=== PATIENT | female | born 2005 | race Asian ===

== ENCOUNTER 2023-12-27 16:55 | Observation (INO) ==
[2023-12-27] MEDS: ONDANSETRON INJ 2 MG/ML 2 ML VIAL IV STA (17:29)
[2023-12-27] MEDS: SODIUM CHLORIDE 0.9% 500 ML IV STA (17:30)
[2023-12-27 17:48] LABS: Basophils # (auto) 0.03 K/uL (0.00-0.20); Basophils % (auto) 0.5 %; Eosinophils # (auto) 0.01 K/uL (0.00-0.50); Eosinophils % (auto) 0.2 %; Hematocrit (blood only) 39.7 % (37.0-47.0); Hemoglobin 13.7 g/dl (12.0-16.0); Immature Granulocytes # (auto) 0.01 K/uL (0.01-0.20); Immature Granulocytes % (auto) 0.2 %; Lymphocytes # (auto) 1.58 K/uL (1.20-3.40); Lymphocytes % (auto) 23.9 %; Mean Corpuscular Hemoglobin 29.7 pg (25.0-34.0); Mean Corpuscular Hgb Conc 34.5 g/dL (32.0-36.0); Mean Corpuscular Volume 86.1 fL (80.0-100.0); Mean Platelet Volume 9.8 fL (9.4-12.4); Monocytes % (auto) 4.5 %; Neutrophils # (auto) 4.68 K/uL (1.40-6.50); Neutrophils % (auto) 70.7 %; Platelet Count 459 K/uL (130-400); RDW Coefficient of Variation 12.1 % (11.5-14.5); RDW Standard Deviation 38.1 fL (36.4-46.3); Red Blood Count 4.61 M/uL (4.20-5.40); White Blood Count 6.61 K/ul (4.8-10.8)
[2023-12-27 18:07] LABS: Pregnancy Test, Serum Negative (Negative)
[2023-12-27 18:09] LABS: Anion Gap 10 (3-11); BUN Creatinine Ratio 10.5 (10-20); Blood Urea Nitrogen 6 mg/dl (6-23); Calcium 10.3 mg/dl (8.6-10.3); Carbon Dioxide 26 mmol/L (21-32); Chloride 104 mmol/L (98-107); Creatinine Clr Calc Pharmacy 145.9 ml/min; Est GFR (African American) > 150.0 ml/min; Est GFR (Non-African American) 133.5 ml/min; Glucose 102 mg/dl (70-99(Fasting)); Potassium 3.6 mmol/L (3.5-5.1); Sodium 140 mmol/L (136-145)
[2023-12-27] MEDS: OPTIRAY 320 100ml IV ONE (18:22)
[2023-12-27 18:41] LABS: Alanine Aminotransferase 1021 U/L (7-52); Albumin Globulin Ratio 1.3 (0.9-2); Albumin Level 4.9 gm/dl (3.4-5.0); Alkaline Phosphatase 167 U/L (34-104); Aspartate Aminotransferase 626 U/L (13-39); Bilirubin,Total 2.1 mg/dl (0.2-1.0); Globulin 3.8 gm/dl (2.5-4.0); Lipase 26 U/L (11-82); Total Protein 8.7 gm/dl (6.0-8.3)
--- NOTE | 2023-12-27 18:49 | CT Scan Report ---
CT abd pelvis IV con only CLINICAL HISTORY: RLQ pain TECHNIQUE: Helical axial images of the abdomen and pelvis were obtained and displayed. Automated dose lowering techniques and/or adjustment according to patient size were utilized for this exam. This e xam was performed with intravenous contrast. CT DOSE: 893.08 mGy.cm COMPARISON: None available at the time of this dictation. FINDINGS: Lower chest: No acute abnormality. Liver: Unremarkable. No focal lesions are seen. Gallbladder and biliary tree: No calcified gallstones. Normal caliber wall. Prominence of the intrahe patic biliary ducts is noted. Pancreas: Unremarkable, no focal lesions. Spleen: Splenule is incidentally noted. Adrenals: Unremarkable. Kidneys and ureters: Unremarkable. Bladder: Limited evaluation due to underdistention. Reproductive organs: Unremarkable. The ovaries are seen bilaterally. Bowel: The appendix is normal. Lymph nodes Retroperitoneal: Unremarkable. Pelvic: Unremarkable. Mesenteric: Unremarkable. Peritoneum: Normal. Vessels: Unremarkable. Abdominal wall: Unremarkable. Bones: Unremarkable. IMPRESSION: 1. No acute abnormalities to explain right lower quadrant pain. In particular, no evidence of append icitis. Pelvic ultrasound can be performed if there is concern for ovarian torsion. 2. Prominence of the intrahepatic bile ducts may be physiologic. ACT 112: Negative or not required by law. Electronically signed by: Andry Borrego M.D. 12/27/2023 6:47 PM
[2023-12-27 19:23] LABS: Appearance Urine Cloudy (Clear); Bacteria Urine Automated Negative (Negative); Blood Urine Negative (Negative); Color Urine Dark Yellow; Epithelial Cell Urine Auto >30 /lpf (0-5); Glucose Urine UA Negative (Negative); Ketones Urine 2+ (Negative); Leukocyte Esterase Urine Trace (Negative); Nitrite Urine Negative (Negative); Specific Gravity Urine > 1.045 (1.000-1.030); Urobilinogen Urine Negative (Negative); WBC Urine Automated >30 /hpf (0-5)
[2023-12-27 19:25] LABS: Bilirubin Urine 1+ (Negative); Protein Urine 1+ (Negative)
[2023-12-27 19:51] LABS: RBC Urine Automated 0-4 /hpf (0-4)
[2023-12-27] MEDS: SODIUM CHLORIDE 0.9% 1,000 ML IV SCH (20:04)
--- NOTE | 2023-12-27 20:38 | Ultrasound Report ---
Exam(s): US GALLBLADDER EXAM: US Abdomen Limited, Gallbladder CLINICAL HISTORY: Reason for exam: ruq pain. TECHNIQUE: Real-time ultrasound of the right upper quadrant with image documentation. COMPARISON: Ultrasound from December 27, 2023 FINDINGS: Liver: The liver measures 15.3 cm with normal echotexture. Gallbladder: There are multiple shadowing stones within a distended but nondilated gallbladder. The gallbladder wall is slightly thickened measuring 4 mm. No pericholecystic fluid is seen. Sonographic Major sign is negative. Common bile duct: The common bile duct is upper normal for age measuring 7.3 mm. No choledocholithiasis is seen. No dilation. Pancreas: The visualized portion of the pancreas is normal. Right kidney: The right kidney measures 10.7 cm. Inferior vena cava: The IVC is unremarkable. IMPRESSION: 1. There are multiple shadowing stones within a distended but nondilated gallbladder. The gallbladder wall is slightly thickened measuring 4 mm. No pericholecystic fluid is seen. Sonographic Major sign is negative. 2. The common bile duct is upper normal for age measuring 7.3 mm. No choledocholithiasis is seen. Electronically signed by: Han Dougherty MD 12/27/23 20:37 PM
--- NOTE | 2023-12-27 21:53 | Ultrasound Report ---
Exam(s): US PELVIS EXAM: US Pelvis Transabdominal, Complete CLINICAL HISTORY: Reason for exam: rlq pain ro ovarian torsion. TECHNIQUE: Real-time complete transabdominal pelvic ultrasound with image documentation. COMPARISON: Abdominal ultrasound from December 27, 2023 FINDINGS: Uterus/cervix: The uterus measures 5 x 2.3 x 3.1 cm and is anteverted. The myometrium is unremarkable. The endometrial stripe measures not visible. Right ovary: The right ovary measures 1.8 x 2 x 1.5 cm with normal Doppler blood flow. Left ovary: The left ovary is obscured. Free fluid: No free fluid is seen in the pelvis. Bladder: Unremarkable as visualized. Wall is normal thickness for degree of distention. IMPRESSION: Unremarkable appearance of the uterus and right ovary per the left ovary is obscured. No free fluid is seen. Electronically signed by: Han Dougherty MD 12/27/23 21:52 PM
--- NOTE | 2023-12-27 22:02 | Emergency Department Note ---
History of Present Illness General Chief Complaint: Abdominal Pain Stated Complaint: RT LOW ABD PAIN, THINKS HAS APPENDESITIS Time Seen by Provider: 12/27/23 19:02 History of Present Illness Provider Complaint: abdominal pain Onset (ago): 2 day(s) Pain Consistency: intermittent Location: RUQ Radiation: RLQ Severity: moderate Maximum Pain Intensity: 7 Current Pain Intensity: 7 Quality: + stabbing and + sharp Relieved By: + nothing Exacerbated By: + nothing Context: + possible food poisoning (Symptoms occurred after eating ice cream rice and beans); no foreign travel, no sick contacts, no recent antibiotic use, no recent surgery/procedure, no recent injury or no history of similar episodes Associated Symptoms: + nausea and + vomiting; no diarrhea, no fever, no chills, no constipation, no dysuria, no hematemesis, no hematochezia, no melena, no hematuria, no syncope, no headache, no back pain, no chest pain and no breathing difficulty Related Data Last Menstrual Period: 11/30/23 Patient Confirmed : No Home Medications Medication Instructions Recorded Confirmed Type multivitamin 1 tab PO DAILY 12/27/23 12/27/23 History Allergies Allergy/AdvReac Type Severity Reaction Status Date / Time Sulfa (Sulfonamide Allergy Intermediate Hives Verified 12/27/23 21:07 Antibiotics) Past Med/Surg History Medical History No pertinent past medical history No pertinent family history Surgical History No pertinent past surgical history Social History Smoking Status: Never smoker Preferred Language: Nigerian Feels Safe at Home: Yes Physical Exam 2 Vital Signs: Vital Signs - 24 hr 12/27/23 17:13 12/27/23 19:01 12/27/23 20:00 Temperature 36.8 C Temperature Source Oral Pulse Rate 93 H Pulse Rate [Finger ] 93 H 63 Pulse Rhythm Regular Pulse Strength Normal Respiratory Rate 20 18 20 Respiratory Effort / Characteristics Non-Labored Sponta neous Non-Labored Sponta neous Non-Labored Respiratory Depth Normal Normal Normal Respiratory Patter n Regular Regular Blood Pressure 131/91 Blood Pressure [Ri ght Arm] 139/92 115/71 Blood Pressure Mita n 104 Blood Pressure Mita n [Right Arm] 107 85 Blood Pressure Pos ition Sitting Pulse Oximetry 98 98 98 Oxygen Delivery Me thod Room Air Room Air Room Air Sepsis Recent Feve r Within 48 Hours No Sepsis New/Unexpla ined Change in Men darvin Status No Sepsis Action Take n by Nursing No Action Required 12/27/23 21:52 12/27/23 22:51 12/27/23 23:00 Temperature Temperature Source Pulse Rate 89 69 Pulse Rate [Finger ] 76 Pulse Rhythm Pulse Strength Respiratory Rate 16 17 Respiratory Effort / Characteristics Non-Labored Respiratory Depth Normal Respiratory Patter n Regular Blood Pressure 129/82 Blood Pressure [Ri ght Arm] 119/78 Blood Pressure Mita n 97 Blood Pressure Mita n [Right Arm] 91 Blood Pressure Pos ition Pulse Oximetry 98 100 Oxygen Delivery Me thod Room Air Room Air Sepsis Recent Feve r Within 48 Hours Sepsis New/Unexpla ined Change in Men darvin Status Sepsis Action Take n by Nursing Physical Exam: Physical Exam GENERAL: Hirsute appearing. HENT: Exam performed. -Head: Normocephalic and atraumatic. -Right Ear: External ear normal. No mastoid erythema -Left Ear: External ear normal. No mastoid erythema -Mouth/Throat: The oropharynx is clear and moist. No trismus in the jaw. No dental abscesses or uvula swelling. No oropharyngeal exudate or tonsillar abscesses. EYES: Conjunctivae and EOM are normal.Right eye exhibits no discharge. Left eye exhibits no discharge. No scleral icterus. NECK: Normal range of motion. Neck supple. No JVD present. No tracheal deviation and normal range of motion present. CV: Normal rate, regular rhythm, normal heart sounds and intact distal pulses. There is no peripheral edema. Palpable radial pulses bue. PULM/CHEST: Effort normal and breath sounds normal. No respiratory distress. No stridor. She has no wheezes. She has no rales. -Chest Wall: She exhibits no tenderness. ABD: The abdomen is soft. Bowel sounds are normal. She has no distension. No mass is present. There is tenderness to palpation of the right upper quadrant and right lower quadrant. There is no rebound, no guarding, no Major's sign and Rovsig negative MUSC/SKEL: Normal range of motion. There is no peripheral edema, tenderness or deformity. NEURO: Motor and sensation grossly intact. SKIN: Skin is warm and dry. She is not diaphoretic. PSYCH: She has a normal mood and affect. Behavior is normal. Judgment and thought content normal. Course Course 1901: The patient was evaluated in room A11A. A complete history and physical exam was performed Cardiac monitoring: An order was placed for continuous cardiac monitoring. The monitor shows a rate of 70 with sinus rhythm interpreted by tx 2101: Vital signs stable. Labs show white blood cell count of 6.61. Platelet count 459. Total bilirubin 2.1 AST 626 ALT [address] of the abdomen pelvis is negative for appendicitis. Ultrasound of the right upper quadrant showed multiple shadowing stones with distended but nondilated gallbladder. There is slight wall thickness of 4 mm but no pericholecystic fluid and no sonographic Major sign. The common bile duct is at the upper end of normal at 7.3 mm but there is no choledocholithiasis seen. Discussed these findings with on-call GI Dr. Valentin. He states that the patient does not need to be transferred at this time and the patient can stay here and get an MRCP in the morning and he can evaluate the patient and see if she needs a HIDA scan. 2211: Vital signs stable. Pelvis ultrasound is negative for ovarian torsion or ovarian cyst on the right. Left ovary is obscured. Discussed case with Dr. Dougherty who will evaluate the patient for admission. Administered Medications Discontinued Medications Sodium Chloride (Nss) 500 mls @ 999 mls/hr IV .Q31M STA Stop: 12/27/23 17:48 Last Infusion: 12/27/23 19:00 Dose: Infused Documented By: Admin: 12/27/23 17:30 Dose: 999 mls/hr Documented By: HERBER Sodium Chloride (Nss) 1,000 mls @ 999 mls/hr IV .Q1H1M BERNABE Stop: 12/27/23 22:00 Last Admin: 12/27/23 20:05 Dose: 999 mls/hr Documented By: Infusion: 12/27/23 20:05 Dose: Infused Documented By: Admin: 12/27/23 20:04 Dose: 999 mls/hr Documented By: PEDRO Ioversol (Optiray 320 100ml) 90 ml IV ONCE ONE Stop: 12/27/23 18:23 Last Admin: 12/27/23 18:22 Dose: 90 ml Documented By: VIR[place]IA Ketorolac Tromethamine (Ketorolac Tromethamine 15 Mg/Ml Vial) 15 mg IV NOW STA Stop: 12/27/23 22:11 Last Admin: 12/27/23 22:42 Dose: 15 mg Documented By: PEDRO Ondansetron HCl (Ondansetron Inj 2 Mg/Ml 2 Ml Vial) 4 mg IV NOW STA Stop: 12/27/23 17:19 Last Admin: 12/27/23 17:29 Dose: 4 mg Documented By: HS Medical Decision Making Laboratory Data Attestation: I reviewed the patient's lab results. 12/27/23 17:32 12/27/23 17:32 Lab Results 12/27/23 12/27/23 Range/Units 17:32 19:00 WBC 6.61 (4.8-10.8) K/ul RBC 4.61 (4.20-5.40) M/uL Hgb 13.7 (12.0-16.0) g/dl Hct 39.7 (37.0-47.0) % MCV 86.1 (80.0-100.0) fL MCH 29.7 (25.0-34.0) pg MCHC 34.5 (32.0-36.0) g/dL RDW Std Deviation 38.1 (36.4-46.3) fL RDW Coeff of Lori 12.1 (11.5-14.5) % Plt Count 459 H (130-400) K/uL MPV 9.8 (9.4-12.4) fL Immature Gran % (Auto) 0.2 % Neut % (Auto) 70.7 % Lymph % (Auto) 23.9 % [place] % (Auto) 4.5 % Eos % (Auto) 0.2 % Baso % (Auto) 0.5 % Neut # (Auto) 4.68 (1.40-6.50) K/uL Lymph # (Auto) 1.58 (1.20-3.40) K/uL [place] # (Auto) 0.30 (0.11-0.59) K/uL Eos # (Auto) 0.01 (0.00-0.50) K/uL Baso # (Auto) 0.03 (0.00-0.20) K/uL Immature Gran # (Auto) 0.01 (0.01-0.20) K/uL Sodium 140 (136-145) mmol/L Potassium 3.6 (3.5-5.1) mmol/L Chloride 104 (98-107) mmol/L Carbon Dioxide 26 (21-32) mmol/L Anion Gap 10 (3-11) BUN 6 (6-23) mg/dl Creatinine 0.57 L (0.6-1.2) mg/dl Est Cr Clr Drug Dosing 145.9 ml/min Est GFR ( Amer) > 150.0 ml/min Est GFR (Non-Af Amer) 133.5 ml/min BUN/Creatinine Ratio 10.5 (10-20) Glucose 102 H (70-99(Fasting)) mg/dl Calcium 10.3 (8.6-10.3) mg/dl Total Bilirubin 2.1 H (0.2-1.0) mg/dl AST 626 H (13-39) U/L ALT 1021 H (7-52) U/L Alkaline Phosphatase 167 H (34-104) U/L Total Protein 8.7 H (6.0-8.3) gm/dl Albumin 4.9 (3.4-5.0) gm/dl Globulin 3.8 (2.5-4.0) gm/dl Albumin/Globulin Ratio 1.3 (0.9-2) Lipase 26 (11-82) U/L HCG, Qual Negative (Negative) Urine Color Dark Yellow Urine Appearance Cloudy A (Clear) Urine pH 8.0 H (4.5-7.5) Ur Specific Tamms > 1.045 H (1.000-1.030) Urine Protein 1+ H (Negative) Urine Glucose (UA) Negative (Negative) Urine Ketones 2+ H (Negative) Urine Blood Negative (Negative) Urine Nitrite Negative (Negative) Urine Bilirubin 1+ H (Negative) Urine Urobilinogen Negative (Negative) Ur Leukocyte Esterase Trace H (Negative) Urine WBC (Auto) >30 H (0-5) /hpf Urine RBC (Auto) 0-4 (0-4) /hpf U Hyaline Cast (Auto) 1-5 (0-5) /lpf U Epithel Cells (Auto) >30 H (0-5) /lpf Urine Bacteria (Auto) Negative (Negative) Urine Yeast Not Reportable Imaging Data Radiologist's Impression: Abdomen/Pelvis CT 12/27/23 17:20 CT abd pelvis IV con only CLINICAL HISTORY: RLQ pain TECHNIQUE: Helical axial images of the abdomen and pelvis were obtained and displayed. Automated dose lowering techniques and/or adjustment according to patient size were utilized for this exam. This exam was performed with intravenous contrast. CT DOSE: 893.08 mGy.cm COMPARISON: None available at the time of this dictation. FINDINGS: Lower chest: No acute abnormality. Liver: Unremarkable. No focal lesions are seen. Gallbladder and biliary tree: No calcified gallstones. Normal caliber wall. Prominence of the intrahepatic biliary ducts is noted. Pancreas: Unremarkable, no focal lesions. Spleen: Splenule is incidentally noted. Adrenals: Unremarkable. Kidneys and ureters: Unremarkable. Bladder: Limited evaluation due to underdistention. Reproductive organs: Unremarkable. The ovaries are seen bilaterally. Bowel: The appendix is normal. Lymph nodes Retroperitoneal: Unremarkable. Pelvic: Unremarkable. Mesenteric: Unremarkable. Peritoneum: Normal. Vessels: Unremarkable. Abdominal wall: Unremarkable. Bones: Unremarkable. IMPRESSION: 1. No acute abnormalities to explain right lower quadrant pain. In particular, no evidence of appendicitis. Pelvic ultrasound can be performed if there is concern for ovarian torsion. 2. Prominence of the intrahepatic bile ducts may be physiologic. ACT 112: Negative or not required by law. Electronically signed by: Andry Borrego M.D. 12/27/2023 6:47 PM Gallbladder Ultrasound 12/27/23 19:22 Exam(s): US GALLBLADDER EXAM: US Abdomen Limited, Gallbladder CLINICAL HISTORY: Reason for exam: ruq pain. TECHNIQUE: Real-time ultrasound of the right upper quadrant with image documentation. COMPARISON: Ultrasound from December 27, 2023 FINDINGS: Liver: The liver measures 15.3 cm with normal echotexture. Gallbladder: There are multiple shadowing stones within a distended but nondilated gallbladder. The gallbladder wall is slightly thickened measuring 4 mm. No pericholecystic fluid is seen. Sonographic Major sign is negative. Common bile duct: The common bile duct is upper normal for age measuring 7.3 mm. No choledocholithiasis is seen. No dilation. Pancreas: The visualized portion of the pancreas is normal. Right kidney: The right kidney measures 10.7 cm. Inferior vena cava: The IVC is unremarkable. IMPRESSION: 1. There are multiple shadowing stones within a distended but nondilated gallbladder. The gallbladder wall is slightly thickened measuring 4 mm. No pericholecystic fluid is seen. Sonographic Major sign is negative. 2. The common bile duct is upper normal for age measuring 7.3 mm. No choledocholithiasis is seen. Electronically signed by: Han Dougherty MD 12/27/23 20:37 PM Pelvis Ultrasound 12/27/23 19:22 Exam(s): US PELVIS EXAM: US Pelvis Transabdominal, Complete CLINICAL HISTORY: Reason for exam: rlq pain ro ovarian torsion. TECHNIQUE: Real-time complete transabdominal pelvic ultrasound with image documentation. COMPARISON: Abdominal ultrasound from December 27, 2023 FINDINGS: Uterus/cervix: The uterus measures 5 x 2.3 x 3.1 cm and is anteverted. The myometrium is unremarkable. The endometrial stripe measures not visible. Right ovary: The right ovary measures 1.8 x 2 x 1.5 cm with normal Doppler blood flow. Left ovary: The left ovary is obscured. Free fluid: No free fluid is seen in the pelvis. Bladder: Unremarkable as visualized. Wall is normal thickness for degree of distention. IMPRESSION: Unremarkable appearance of the uterus and right ovary per the left ovary is obscured. No free fluid is seen. Electronically signed by: Han Dougherty MD 12/27/23 21:52 PM [facility] Narrative 1902: The patient was evaluated in room A11A. A complete history and physical exam was performed Cardiac monitoring: An order was placed for continuous cardiac monitoring. The monitor shows a rate of 70 with sinus rhythm interpreted by tx 2101: Vital signs stable. Labs show white blood cell count of 6.61. Platelet count 459. Total bilirubin 2.1 AST 626 ALT [address] of the abdomen pelvis is negative for appendicitis. Ultrasound of the right upper quadrant showed multiple shadowing stones with distended but nondilated gallbladder. There is slight wall thickness of 4 mm but no pericholecystic fluid and no sonographic Major sign. The common bile duct is at the upper end of normal at 7.3 mm but there is no choledocholithiasis seen. Discussed these findings with on-call GI Dr. Valentin. He states that the patient does not need to be transferred at this time and the patient can stay here and get an MRCP in the morning and he can evaluate the patient and see if she needs a HIDA scan. 2212: Vital signs stable. Pelvis ultrasound is negative for ovarian torsion or ovarian cyst on the right. Left ovary is obscured. Discussed case with Dr. Dougherty who will evaluate the patient for admission. Impression & Plan Abdominal pain, Transaminitis, Gallstone Discharge Plan Visit Data Chief Complaint: Abdominal Pain Stated Complaint: RT LOW ABD PAIN, THINKS HAS APPENDESITIS ED Provider: Payam Dubose Discharge Problem: Abdominal pain, Transaminitis, Gallstone Patient Disposition: Being Evaluated by Hospitalist Forms Stand Alone Forms: [facility] Prescriptions Prescriptions: No Action multivitamin Tablet 1 tab PO DAILY Referrals Referrals: [facility]gregor[facility] [Primary Care Provider] - Discharge Problem: Abdominal pain Qualifiers: Abdominal location: unspecified location Qualified Code(s): R10.9 - Unspecified abdominal pain
[2023-12-27] MEDS: KETOROLAC TROMETHAMINE 15 MG/ML VIAL IV STA (22:42)
--- NOTE | 2023-12-27 23:29 | History & Physical Report ---
Date of Service December 27, 2023 Assessment & Plan (1) Transaminitis: Plan: 18yo female presenting with two days of abdominal pain as well as nausea and vomiting. Laboratory and imaging findings as above - concern for LFT abnormalities in mixed hepatocellular and obstructive patterns. CT imaging with prominence of bile ducts. US with gallstones with CBD at upper limit of normal range. Patient is afebrile, HD stable, non-toxic in appearance and no leukocytosis. Concern would be choledocholithiasis given AP/Tbili elevation as well as CBD at ULN size. Case was discussed with GI quality assurance monitor body and admission to our facility was recommended. 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 Patient developed pain yesterday AM (12/27/23). Pain was in her upper abdomen with radiation into her chest and back. Constant with intermittent worsening as well as some nausea with two episodes of non-bloody/non-bilious vomiting (first at 07:30 then at 18:30). Patient had ongoing pain today as well as nausea and vomiting (10:30 and 11:30 AM). Pain is 7/10 in severity. No associated fever, chills, shortness of breath or diarrhea. She had a normal BM yesterday but none today. No additional complaints. In the ER she is afebrile, HD stable and non-toxic in appearance. Er Course: Zofran 4mg IV NSS x 2.5L Toradol 15mg Allergies Allergy/AdvReac Type Severity Reaction Status Date / Time Sulfa (Sulfonamide Allergy Intermediate Hives Verified 12/27/23 21:07 Antibiotics) Home Medications Medication Instructions Recorded Confirmed Type multivitamin 1 tab PO DAILY 12/27/23 12/27/23 History Past Med/Surg History Medical History (Updated 12/28/23 @ 00:40 by Sara Dougherty DO) No pertinent past medical history Surgical History (Updated 12/28/23 @ 00:40 by Sara Dougherty DO) History of knee surgery Family History (Updated 12/28/23 @ 00:40 by Sara Dougherty DO) Other No significant family history Social History Smoking Status: Never smoker Preferred Language: Burmese Feels Safe at Home: Yes Review of Systems Review of Systems: All systems reviewed & are unremarkable except as noted in HPI & below Physical Exam Physical Exam: General: patient resting comfortably, NAD, non-toxic in appearance, AA&O x 4 Skin: warm, dry, intact, no rashes or lesions, no jaundice HEENT: NC/AT, PERRL, EOMI, anicteric sclera, conjunctiva without injection, external ear normal to inspection and nontender, nares patent, moist mucus membranes, dentition intact, no oropharyngeal lesions, neck supple, trachea midline, no LAD, no thyromegaly, no JVD Heart: +S1/S2, regular, no m/r/g Lungs: equal air entry bilaterally, no rales/rhonchi/wheezes Abd: +BS, soft, ND, tenderness to palpation of upper abdomen without rebound/guarding/peritonitis Ext: warm, 2+ pulses in UE/LE bilaterally, no clubbing/cyanosis or edema Neuro: nonfocal, patient AA&O x 4, speech intact, no facial droop, moving all extremities on command with equal strength 5/5 Results & Data Results & Data Vital Signs (Past 12 Hours) Vital Signs Temp Pulse Pulse Resp BP BP Pulse Ox 12/27/23 23:00 69 17 129/82 100 12/27/23 22:51 89 12/27/23 21:52 76 16 119/78 98 12/27/23 20:00 63 20 115/71 98 12/27/23 19:01 93 H 18 139/92 98 12/27/23 17:13 36.8 C 93 H 20 131/91 98 O2 Del Method 12/27/23 23:00 Room Air 12/27/23 22:51 12/27/23 21:52 Room Air 12/27/23 20:00 Room Air 12/27/23 19:01 Room Air 12/27/23 17:13 Room Air Laboratory Results Laboratory Results WBC 6.61 K/ul (4.8-10.8) 12/27/23 17: RBC 4.61 M/uL (4.20-5.40) 12/27/23 17:32 Hgb 13.7 g/dl (12.0-16.0) 12/27/23 17:32 Hct 39.7 % (37.0-47.0) 12/27/23 17: MCV 86.1 fL (80.0-100.0) 12/27/23 17: MCH 29.7 pg (25.0-34.0) 12/27/23 17: MCHC 34.5 g/dL (32.0-36.0) 12/27/23 17: RDW Std Deviation 38.1 fL (36.4-46.3) 12/27/23 17: RDW Coeff of Lori 12.1 % (11.5-14.5) 12/27/23 17: Plt Count 459 K/uL (130-400) H 12/27/23 17:32 MPV 9.8 fL (9.4-12.4) 12/27/23 17: Immature Gran % (Auto) 0.2 % 12/27/23 17: Neut % (Auto) 70.7 % 12/27/23 17:32 Lymph % (Auto) 23.9 % 12/27/23 17:32 Sac % (Auto) 4.5 % 12/27/23 17:32 Eos % (Auto) 0.2 % 12/27/23 17: Baso % (Auto) 0.5 % 12/27/23 17:32 Neut # (Auto) 4.68 K/uL (1.40-6.50) 12/27/23 17: Lymph # (Auto) 1.58 K/uL (1.20-3.40) 12/27/23 17: Sac # (Auto) 0.30 K/uL (0.11-0.59) 12/27/23 17: Eos # (Auto) 0.01 K/uL (0.00-0.50) 12/27/23 17: Baso # (Auto) 0.03 K/uL (0.00-0.20) 12/27/23 17:32 Immature Gran # (Auto) 0.01 K/uL (0.01-0.20) 12/27/23 17:32 Sodium 140 mmol/L (136-145) 12/27/23 17:32 Potassium 3.6 mmol/L (3.5-5.1) 12/27/23 17:32 Chloride 104 mmol/L (98-107) 12/27/23 17:32 Carbon Dioxide 26 mmol/L (21-32) 12/27/23 17:32 Anion Gap 10 (3-11) 12/27/23 17:32 BUN 6 mg/dl (6-23) 12/27/23 17:32 Creatinine 0.57 mg/dl (0.6-1.2) L 12/27/23 17:32 Est Cr Clr Drug Dosing 145.9 ml/min 12/27/23 17:32 Est GFR ( Amer) > 150.0 ml/min 12/27/23 17:32 Est GFR (Non-Af Amer) 133.5 ml/min 12/27/23 17:32 BUN/Creatinine Ratio 10.5 (10-20) 12/27/23 17:32 Glucose 102 mg/dl (70-99(Fasting)) H 12/27/23 17:32 Calcium 10.3 mg/dl (8.6-10.3) 12/27/23 17:32 Total Bilirubin 2.1 mg/dl (0.2-1.0) H 12/27/23 17:32 AST 626 U/L (13-39) H 12/27/23 17:32 ALT 1021 U/L (7-52) H 12/27/23 17:32 Alkaline Phosphatase 167 U/L (34-104) H 12/27/23 17:32 Total Protein 8.7 gm/dl (6.0-8.3) H 12/27/23 17:32 Albumin 4.9 gm/dl (3.4-5.0) 12/27/23 17:32 Globulin 3.8 gm/dl (2.5-4.0) 12/27/23 17:32 Albumin/Globulin Ratio 1.3 (0.9-2) 12/27/23 17:32 Lipase 26 U/L (11-82) 12/27/23 17:32 HCG, Qual Negative (Negative) 12/27/23 17:32 Urine Color Dark Yellow 12/27/23 19:00 Urine Appearance Cloudy (Clear) A 12/27/23 19:00 Urine pH 8.0 (4.5-7.5) H 12/27/23 19:00 Ur Specific [place] > 1.045 (1.000-1.030) H 12/27/23 19:00 Urine Protein 1+ (Negative) H 12/27/23 19:00 Urine Glucose (UA) Negative (Negative) 12/27/23 19:00 Urine Ketones 2+ (Negative) H 12/27/23 19:00 Urine Blood Negative (Negative) 12/27/23 19:00 Urine Nitrite Negative (Negative) 12/27/23 19:00 Urine Bilirubin 1+ (Negative) H 12/27/23 19:00 Urine Urobilinogen Negative (Negative) 12/27/23 19:00 Ur Leukocyte Esterase Trace (Negative) H 12/27/23 19:00 Urine WBC (Auto) >30 /hpf (0-5) H 12/27/23 19:00 Urine RBC (Auto) 0-4 /hpf (0-4) 12/27/23 19:00 U Hyaline Cast (Auto) 1-5 /lpf (0-5) 12/27/23 19:00 U Epithel Cells (Auto) >30 /lpf (0-5) H 12/27/23 19:00 Urine Bacteria (Auto) Negative (Negative) 12/27/23 19:00 Urine Yeast Not Reportable 12/27/23 19:00 Impressions Abdomen/Pelvis CT 12/27/23 17:20 CT abd pelvis IV con only CLINICAL HISTORY: RLQ pain TECHNIQUE: Helical axial images of the abdomen and pelvis were obtained and displayed. Automated dose lowering techniques and/or adjustment according to patient size were utilized for this exam. This exam was performed with intravenous contrast. CT DOSE: 893.08 mGy.cm COMPARISON: None available at the time of this dictation. FINDINGS: Lower chest: No acute abnormality. Liver: Unremarkable. No focal lesions are seen. Gallbladder and biliary tree: No calcified gallstones. Normal caliber wall. Prominence of the intrahepatic biliary ducts is noted. Pancreas: Unremarkable, no focal lesions. Spleen: Splenule is incidentally noted. Adrenals: Unremarkable. Kidneys and ureters: Unremarkable. Bladder: Limited evaluation due to underdistention. Reproductive organs: Unremarkable. The ovaries are seen bilaterally. Bowel: The appendix is normal. Lymph nodes Retroperitoneal: Unremarkable. Pelvic: Unremarkable. Mesenteric: Unremarkable. Peritoneum: Normal. Vessels: Unremarkable. Abdominal wall: Unremarkable. Bones: Unremarkable. IMPRESSION: 1. No acute abnormalities to explain right lower quadrant pain. In particular, no evidence of appendicitis. Pelvic ultrasound can be performed if there is concern for ovarian torsion. 2. Prominence of the intrahepatic bile ducts may be physiologic. ACT 112: Negative or not required by law. Electronically signed by: Andry Borrego M.D. 12/27/2023 6:47 PM Gallbladder Ultrasound 12/27/23 19:22 Exam(s): US GALLBLADDER EXAM: US Abdomen Limited, Gallbladder CLINICAL HISTORY: Reason for exam: ruq pain. TECHNIQUE: Real-time ultrasound of the right upper quadrant with image documentation. COMPARISON: Ultrasound from December 27, 2023 FINDINGS: Liver: The liver measures 15.3 cm with normal echotexture. Gallbladder: There are multiple shadowing stones within a distended but nondilated gallbladder. The gallbladder wall is slightly thickened measuring 4 mm. No pericholecystic fluid is seen. Sonographic Major sign is negative. Common bile duct: The common bile duct is upper normal for age measuring 7.3 mm. No choledocholithiasis is seen. No dilation. Pancreas: The visualized portion of the pancreas is normal. Right kidney: The right kidney measures 10.7 cm. Inferior vena cava: The IVC is unremarkable. IMPRESSION: 1. There are multiple shadowing stones within a distended but nondilated gallbladder. The gallbladder wall is slightly thickened measuring 4 mm. No pericholecystic fluid is seen. Sonographic Major sign is negative. 2. The common bile duct is upper normal for age measuring 7.3 mm. No choledocholithiasis is seen. Electronically signed by: Han Dougherty MD 12/27/23 20:37 PM Pelvis Ultrasound 12/27/23 19:22 Exam(s): US PELVIS EXAM: US Pelvis Transabdominal, Complete CLINICAL HISTORY: Reason for exam: rlq pain ro ovarian torsion. TECHNIQUE: Real-time complete transabdominal pelvic ultrasound with image documentation. COMPARISON: Abdominal ultrasound from December 27, 2023 FINDINGS: Uterus/cervix: The uterus measures 5 x 2.3 x 3.1 cm and is anteverted. The myometrium is unremarkable. The endometrial stripe measures not visible. Right ovary: The right ovary measures 1.8 x 2 x 1.5 cm with normal Doppler blood flow. Left ovary: The left ovary is obscured. Free fluid: No free fluid is seen in the pelvis. Bladder: Unremarkable as visualized. Wall is normal thickness for degree of distention. IMPRESSION: Unremarkable appearance of the uterus and right ovary per the left ovary is obscured. No free fluid is seen. Electronically signed by: Han Dougherty MD 12/27/23 21:52 PM PG Care Time/CCT Total # of Minutes Spent Total Time Spent with Patient: Total time spent is greater than 50% in coordination of care (as documented) at patient's floor/unit and/or counseling patient: Coding Level of Care Code 35100 INT INP/OBS CARE 2/55MIN Diagnoses Transaminitis R74.01 Gallstone K80.20
[2023-12-28] MEDS ORDERED: MoRPHine SULFATE 2 MG/ML CARP IV PRN (00:43)
[2023-12-28] MEDS ORDERED: DOCUSATE SODIUM 100 MG CAP PO PRN (00:43)
[2023-12-28] MEDS: LACTATED RINGER'S 1,000 ML IV SCH (02:06)
[2023-12-28] MEDS: ONDANSETRON INJ 2 MG/ML 2 ML VIAL IV PRN (02:54)
[2023-12-28] MEDS: MoRPHine SULFATE 2 MG/ML CARP IV PRN (02:56)
--- NOTE | 2023-12-28 03:32 | Magnetic Resonance Report ---
Exam(s): MRI MRCP EXAM: MR Abdomen Without Intravenous Contrast, MRCP Protocol CLINICAL HISTORY: Reason for exam: abdominal pain, abnormal LFTs. TECHNIQUE: Multiplanar magnetic resonance images of the abdomen without intravenous contrast using MRCP protocol. COMPARISON: CT abdomen and pelvis from December 27, 2023 FINDINGS: Bile ducts: The common bile duct is mildly dilated proximally measuring 9-10 mm. There appears to be a 4 mm calculus in the distal common bile duct. Gallbladder: The gallbladder is distended but nondilated. There are multiple gallstones within it measuring up to 1.4 cm in diameter. Liver: Unremarkable. Pancreas: Unremarkable. No ductal dilation. Spleen: Unremarkable. No splenomegaly. Adrenals: Unremarkable. No mass. Kidneys and ureters: Unremarkable. No hydronephrosis. Stomach and bowel: Unremarkable. No obstruction. IMPRESSION: 1. The gallbladder is distended but nondilated. There are multiple gallstones within it measuring up to 1.4 cm in diameter. 2. The common bile duct is mildly dilated proximally measuring 9-10 mm. There appears to be a 4 mm calculus in the distal common bile duct. Electronically signed by: Han Dougherty MD 12/28/23 03:32 AM
[2023-12-28 05:51] LABS: Hematocrit (blood only) 36.8 % (37.0-47.0); Hemoglobin 12.6 g/dl (12.0-16.0); Mean Corpuscular Hemoglobin 29.7 pg (25.0-34.0); Mean Corpuscular Hgb Conc 34.2 g/dL (32.0-36.0); Mean Corpuscular Volume 86.8 fL (80.0-100.0); Mean Platelet Volume 9.9 fL (9.4-12.4); Platelet Count 351 K/uL (130-400); RDW Coefficient of Variation 12.2 % (11.5-14.5); Red Blood Count 4.24 M/uL (4.20-5.40); White Blood Count 8.19 K/ul (4.8-10.8)
[2023-12-28 06:08] LABS: Albumin Level 3.9 gm/dl (3.4-5.0); Alkaline Phosphatase 154 U/L (34-104); Anion Gap 9 (3-11); Aspartate Aminotransferase 353 U/L (13-39); BUN Creatinine Ratio 7.7 (10-20); Bilirubin,Total 2.9 mg/dl (0.2-1.0); Blood Urea Nitrogen 4 mg/dl (6-23); Calcium 8.7 mg/dl (8.6-10.3); Carbon Dioxide 23 mmol/L (21-32); Chloride 107 mmol/L (98-107); Creatinine Clr Calc Pharmacy 162.2 ml/min; Est GFR (African American) > 150.0 ml/min; Est GFR (Non-African American) 137.5 ml/min; Glucose 104 mg/dl (70-99(Fasting)); Potassium 3.2 mmol/L (3.5-5.1); Sodium 139 mmol/L (136-145); Total Protein 6.8 gm/dl (6.0-8.3)
[2023-12-28 06:24] LABS: Alanine Aminotransferase 724 U/L (7-52)
[2023-12-28] MEDS: ACETAMINOPHEN 325 MG TAB PO PRN (07:30)
[2023-12-28] MEDS: POTASSIUM CHLORIDE 20 MEQ in LACTATED RINGER'S 1,000 ML IV SCH (10:02)
[2023-12-28] MEDS: AMPICILLIN/SULBACTAM SOD 3,000 MG in SODIUM CHLOR 0.9% MINI-B 100 ML IV SCH (10:04)
[2023-12-28] MEDS: POTASSIUM CHLORIDE CRTAB 20 MEQ TABCR PO STA (10:07)
[2023-12-28 10:09] LABS: Magnesium 1.7 mg/dl (1.7-2.4)
--- NOTE | 2023-12-28 11:02 | Communication Note ---
Date of Service: December 28, 2023 Patient is a 18 y.o. female admitted with elevated liver panel and abnormal imaging consistent with choledocholithiasis in the setting of RUQ pain and n/v. MRCP: " IMPRESSION: 1. The gallbladder is distended but nondilated. There are multiple gallstones within it measuring up to 1.4 cm in diameter. 2. The common bile duct is mildly dilated proximally measuring 9-10 mm. There appears to be a 4 mm calculus in the distal common bile duct." Liver panel: TB 2.9, DB 2.0, AST 353, ALT 724, ALP 154. Discussed with Dr. Urrutia. Plan for tertiary transfer with endoscopic biliary capabilities.
--- NOTE | 2023-12-28 17:23 | Discharge Summary ---
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 Patient developed pain yesterday AM (12/27/23). Pain was in her upper abdomen with radiation into her chest and back. Constant with intermittent worsening as well as some nausea with two episodes of non-bloody/non-bilious vomiting (first at 07:30 then at 18:30). Patient had ongoing pain today as well as nausea and vomiting (10:30 and 11:30 AM). Pain is 7/10 in severity. No associated fever, chills, shortness of breath or diarrhea. She had a normal BM yesterday but none today. No additional complaints. In the ER she is afebrile, HD stable and non-toxic in appearance. Er Course: Zofran 4mg IV NSS x 2.5L Toradol 15mg Discharge Data Allergies Allergy/AdvReac Type Severity Reaction Status Date / Time Sulfa (Sulfonamide Allergy Intermediate Hives Verified 12/27/23 21:07 Antibiotics) Consultations 12/27/23 22:02 ED Decision to Admit Stat 12/27/23 22:11 ED Decision to Admit Stat 12/28/23 00:43 Consult Gastroenterology Routine Ordered Studies 12/27/23 17:20 CT abd pelvis IV con only Stat 12/27/23 19:22 US gallbladder Stat US pelvic complete Stat 12/28/23 00:58 MR MRCP Stat Hospital Course (1) Transaminitis: 18yo female presenting with two days of abdominal pain as well as nausea and vomiting. Laboratory and imaging findings as above - concern for LFT abnormalities in mixed hepatocellular and obstructive patterns. CT imaging with prominence of bile ducts. US with gallstones with CBD at upper limit of normal range. Patient is afebrile, HD stable, non-toxic in appearance and no leukocytosis. Concern would be choledocholithiasis given AP/Tbili elevation as well as CBD at ULN size. Case was discussed with GI agronomy advisor and admission to our facility was recommended. -Obtain MRCP - ordered STAT from the ER -Repeat LFTs in AM -Check acute hepatitis panel and acetaminophen level -GI consultation -Should patient have CBD lesion or stone will likely need to be transferred to a facility with ERCP capabilities -Tylenol PRN -Morphine PRN -Zofran PRN -LR at 125mL/hr x 2L while NPO (2) Gallstone: Discharge Plan Discharge Items Patient Disposition: Transfer Acute Care Hospital Reason For Visit: ABDOMINAL PAIN Discharge Diagnosis: 1. choledocholithiasis 2. gallstones 3. abnormal LFTs 2nd to #1 4. hypokalemia Activity: Resume your previous activity Non-emergency contact: Primary Care Provider Call non-emergency contact if: you have any medication questions Follow-up/Referrals: [facility] [Primary Care Provider] - Diet: Nothing by Mouth Addtl Attending Provider Instructions: Further instructions to follow after your hospitalization at [facility]. Pending Studies at Discharge: No Stand-Alone Forms: My [facility] Skilled Items Patient informed of condition?: Yes DNR: No Discharge Level of Care: Other Communicable Disease: No Discharge Prognosis: Stable Lines: Peripheral IV Urinary Catheter: No Medications and DC Order Prescriptions: Continued multivitamin Tablet 1 tab PO DAILY Discharge Orders: Discharge Order (Routine); Ordered 12/28/23 Ordered By: Jose M Urrutia Admission Data Admit Date/Time: 12/27/23 23:29 Attending Provider: Jose M Urrutia Admit Provider: Sara Dougherty Primary Care Provider: [facility] Other Providers: Sara Dougherty; Alberto Valentin Coding Diagnoses Transaminitis R74.01 Gallstone K80.20
[2023-12-29 12:43] LABS: HBSAG NON-REACTIVE (NON-REACTIVE); Hepatitis A Antibody IgM NON-REACTIVE (NON-REACTIVE); Hepatitis B Core Antibody IgM NON-REACTIVE (NON-REACTIVE)
== END 2023-12-28 17:48 | disposition short-term general hospital (02) ==
LOC: ED 16:55 → 3E 16:55 → SUATTDRO 23:29 → 3E 12-28 00:22
DX: Z88.2 Allergy status to sulfonamides; K80.70 Calculus of gallbladder and bile duct without cholecystitis without obstruction; E87.6 Hypokalemia